=== PATIENT | male | born 1995 | race Caucasian/White ===

== ENCOUNTER 2023-07-19 18:09 | Emergency (ER) | payer OTHER ==
[2023-07-19 18:35] VITALS: BP 131/80; PULSE 77; TEMP 98.2
--- NOTE | 2023-07-19 18:52 | XR ---
EXAMINATION TYPE: XR shoulder complete RT DATE OF EXAM: 07/19/2023 6:36 PM CLINICAL INDICATION:Male, 28 years old with history of Injury; [facility] COMPARISON: None TECHNIQUE: XR shoulder complete RT; shoulder was examined in AP, internally rotated and scapular Y p rojections. FINDINGS: No evidence of acute osseous pathology, joint dislocation, or soft tissue swelling. The remaining por tions of the visualized chest are unremarkable. Calcifications noted in the inferior aspect of the right humeral head could represent joint bodies. IMPRESSION: 1. No acute osseous pathology. 2. Calcifications around the right humeral head could represent joint bodies. Consider further evalu ation with MRI.
--- NOTE | 2023-07-19 19:31 | ED ---
Upper Extremity HPI - General Chief Complaint: Extremity Injury, Upper Stated Complaint: [facility] shoulder injury Time Seen by Provider: 07/19/23 19:07 Source: patient Mode of arrival: ambulatory Limitations: no limitations - History of Present Illness Initial Comments: 28-year-old male presenting with chief complaint of right shoulder injury. Patient was at work lifting a heavy object when he felt a pop in the shoulder. He states that he has an old injury. He has limited range of motion at this time secondary to pain. No numbness or tingling. - Related Data Allergies Allergy/AdvReac Type Severity Reaction Status Date / Time amoxicillin Allergy Rash/Hives Verified 07/09/23 13:59 Penicillins Allergy Rash/Hives Verified 07/19/23 18:29 Review of Systems ROS Statement: Those systems with pertinent positive or pertinent negative responses have been documented in the HPI. ROS Other: All systems not noted in ROS Statement are negative. Past Medical History Past Medical History: No Reported History History of Any Multi-Drug Resistant Organisms: None Reported Past Surgical History: No Surgical Hx Reported Past Psychological History: No Psychological Hx Reported Smoking Status: Current every day smoker, Vaper Past Alcohol Use History: None Reported Past Drug Use History: Marijuana General Exam Limitations: no limitations General appearance: alert, in no apparent distress Head exam: Present: atraumatic, normocephalic, normal inspection Eye exam: Present: normal appearance, EOMI Neck exam: Present: normal inspection, full ROM Respiratory exam: Absent: respiratory distress Right Shoulder Exam: Present: normal inspection, tenderness. Absent: full ROM, swelling, deformity Neurological exam: Present: alert, oriented X3 Psychiatric exam: Present: normal affect, normal mood Skin exam: Present: warm, dry, intact, normal color. Absent: rash Course Vital Signs 07/19/23 07/19/23 18:27 20:15 Temperature 98.2 F Pulse Rate 77 Respiratory 20 16 Rate Blood Pressure 131/80 O2 Sat by Pulse 98 Oximetry Medical Decision Making - Medical Decision Making Was pt. sent in by a medical professional or institution ([facility], PATIENT PORTAL REPRESENTATIVE, urgent care, hospital, or intermediate...) When possible be specific @ -No Did you speak to anyone other than the patient for history (EMS, parent, family, police, friend...)? What history was obtained from this source @ -No Did you review nursing and triage notes (agree or disagree)? Why? @ -I reviewed and agree with nursing and triage notes Were old charts reviewed (outside hosp., previous admission, EMS record, old EKG, old radiological studies, urgent care reports/EKG's, intermediate records)? Report findings @ -No old charts were reviewed Differential Diagnosis (chest pain, altered mental status, abdominal pain women, abdominal pain men, vaginal bleeding, weakness, fever, dyspnea, syncope, headache, dizziness, GI bleed, back pain, seizure, CVA, palpatations, mental health, musculoskeletal)? @ -Differential Musculoskeletal Muscular strain, contusion, ligament sprain, fracture, arthritis, septic arthritis, bursitis, cellulitis, muscle spasm, nerve compression, DVT, arterial occlusion, herpes zoster, electrolyte abnormality, tumor.... This is not meant to be in all inclusive list EKG interpreted by me (3pts min.). @ -As above X-rays interpreted by me (1pt min.). @ -No acute osseous pathology. Calcifications from the right humeral head could represent joint bodies. Consider further evaluation with MRI. CT interpreted by me (1pt min.). @ -None done U/S interpreted by me (1pt. min.). @ -None done What testing was considered but not performed or refused? (CT, X-rays, U/S, labs)? Why? @ -None What meds were considered but not given or refused? Why? @ -None Did you discuss the management of the patient with other professionals (professionals i.e. , PA, PATIENT PORTAL REPRESENTATIVE, lab, RT, psych nurse, 7th grade social studies teacher, christian ministries professor, teacher, corporate trust officer, field nurse case manager)? Give summary @ -No Was smoking cessation discussed for >3mins.? @ -No Was critical care preformed (if so, how long)? @ -No Were there social determinants of health that impacted care today? How? (Homelessness, low income, unemployed, alcoholism, drug addiction, transportation, low edu. Level, literacy, decrease access to med. care, [facility], rehab)? @ -No Was there de-escalation of care discussed even if they declined (Discuss DNR or withdrawal of care, Hospice)? DNR status @ -No What co-morbidities impacted this encounter? (DM, HTN, Smoking, COPD, CAD, Cancer, CVA, ARF, Chemo, Hep., AIDS, mental health diagnosis, sleep apnea, morbid obesity)? @ -None Was patient admitted / discharged? Hospital course, mention meds given and route, prescriptions, significant lab abnormalities, going to OR and other pertinent info. @ -28-year-old male presenting with chief complaint of right shoulder injury from lifting a heavy object at work. Neurovascularly intact. X-ray negative for fracture or dislocation. Possible joint bodies, recommended evaluation with MRI. Patient is educated on today's findings and instructed to follow-up with orthopedics. Provided with a shoulder sling. Follow-up with PCP. Report back to ER with any new or worsening symptoms. Discussed return parameters and answered all questions. Patient conveyed verbal understanding and agreed to the plan. I discussed this case in detail with my attending Dr. Logan Undiagnosed new problem with uncertain prognosis? @ -No Drug Therapy requiring intensive monitoring for toxicity (Heparin, Nitro, Insulin, Cardizem)? @ -No Were any procedures done? @ -No Diagnosis/symptom? @ -Shoulder sprain Acute, or Chronic, or Acute on Chronic? @ -Acute Uncomplicated (without systemic symptoms) or Complicated (systemic symptoms)? @ -Uncomplicated Side effects of treatment? @ -No Exacerbation, Progression, or Severe Exacerbation? @ -No Poses a threat to life or bodily function? How? (Chest pain, [place], [place], pneumonia, PE, COPD, DKA, ARF, appy, cholecystitis, CVA, Diverticulitis, Homicidal, Suicidal, threat to staff... and all critical care pts) @ -No Disposition Clinical Impression: Shoulder sprain Disposition: HOME SELF-CARE Condition: Good Instructions (If sedation given, give patient instructions): Shoulder Sprain (ED) Additional Instructions: Follow-up with PCP. Report back to ER with any new or worsening symptoms. Take Motrin and Tylenol as needed for pain control. Rest and ice the shoulder. Is patient prescribed a controlled substance at d/c from ED?: No Referrals: None,Stated [Primary Care Provider] - 1-2 days Kenan Art MD [Medical Doctor] - 1-2 days Time of Disposition: 19:31
[2023-07-19 20:24] VITALS: RESP 16
== END 2023-07-19 20:15 | disposition home or self-care (01) ==
LOC: EC 18:09
DX: S43.401A Unspecified sprain of right shoulder joint, initial encounter (principal); F17.290 Nicotine dependence, other tobacco product, uncomplicated; F12.90 Cannabis use, unspecified, uncomplicated; Z88.0 Allergy status to penicillin; X50.0XXA Overexertion from strenuous movement or load, initial encounter; Y99.0 Civilian activity done for income or pay
CPT/HCPCS: 99283

== ENCOUNTER 2024-03-27 17:04 | Emergency (ER) | payer OTHER ==
--- NOTE | 2024-03-27 17:39 | ED ---
Fall HPI - General Chief Complaint: Fall Stated Complaint: Fall/L side injury Time Seen by Provider: 03/27/24 17:20 Source: patient, RN notes reviewed Mode of arrival: ambulatory - History of Present Illness Initial Comments: This is a 28-year-old male with no significant past medical history who presents emergency department chief complaint of a fall. Patient states that on 03/25 he was at work machinery when part of the board gave way resulting in a fall injuring the patient's left lower side of the abdomen. Patient denies hitting his head or loss of consciousness at time of the fall. However states that he is having neck pain and mild headache since the event. Patient denies blood in his urine or stool. No other acute bony complaints. - Related Data Allergies Allergy/AdvReac Type Severity Reaction Status Date / Time amoxicillin Allergy Rash/Hives Verified 07/09/23 13:59 Penicillins Allergy Rash/Hives Verified 07/19/23 18:29 Review of Systems ROS Statement: Those systems with pertinent positive or pertinent negative responses have been documented in the HPI. ROS Other: All systems not noted in ROS Statement are negative. Past Medical History Past Medical History: No Reported History History of Any Multi-Drug Resistant Organisms: None Reported Past Surgical History: No Surgical Hx Reported Past Psychological History: No Psychological Hx Reported Smoking Status: Current every day smoker, Vaper Past Alcohol Use History: None Reported Past Drug Use History: Marijuana General Exam Limitations: no limitations General appearance: alert, in no apparent distress Head exam: Present: atraumatic, normocephalic, normal inspection Eye exam: Present: normal appearance, PERRL, EOMI. Absent: scleral icterus, conjunctival injection, periorbital swelling ENT exam: Present: normal exam, mucous membranes moist Neck exam: Present: normal inspection, tenderness, full ROM Respiratory exam: Present: normal lung sounds bilaterally. Absent: respiratory distress, wheezes, rales, rhonchi, stridor Cardiovascular Exam: Present: regular rate, normal rhythm, normal heart sounds. Absent: systolic murmur, diastolic murmur, rubs, gallop, clicks GI/Abdominal exam: Present: soft, tenderness (left lower abdomen with ecchymosis mild abrasion measuring approximately 8 cm x 4 cm). Absent: guarding, rebound, rigid Extremities exam: Present: normal inspection, full ROM, normal capillary refill. Absent: tenderness, pedal edema, joint swelling, calf tenderness Back exam: Present: normal inspection Neurological exam: Present: alert, oriented X3, CN II-XII intact Psychiatric exam: Present: normal affect, normal mood Skin exam: Present: warm, dry, intact, normal color, other. Absent: rash Course Vital Signs 03/27/24 03/27/24 17:19 21:51 Temperature 97 F L 97.2 F L Pulse Rate 75 69 Respiratory 16 18 Rate Blood Pressure 160/87 123/80 O2 Sat by Pulse 98 98 Oximetry Medical Decision Making - Medical Decision Making Was pt. sent in by a medical professional or institution (, PA, OVEN ROASTER, urgent care, hospital, or [facility]...) When possible be specific @ -No Did you speak to anyone other than the patient for history (EMS, parent, family, police, friend...)? What history was obtained from this source @ -No Did you review nursing and triage notes (agree or disagree)? Why? @ -I reviewed and agree with nursing and triage notes Were old charts reviewed (outside hosp., previous admission, EMS record, old EKG, old radiological studies, urgent care reports/EKG's, [facility] records)? Report findings @ -No old charts were reviewed Differential Diagnosis (chest pain, altered mental status, abdominal pain women, abdominal pain men, vaginal bleeding, weakness, fever, dyspnea, syncope, headache, dizziness, GI bleed, back pain, seizure, CVA, palpatations, mental he alth, musculoskeletal)? @ -Ecchymosis, hematoma, cervical neck strain, cervical neck fracture, intr aabdominal hemorrhage, sepsis, all inclusive. EKG interpreted by me (3pts min.). @ -none X-rays interpreted by me (1pt min.). @ -xray of the cervical spine no evidence for fracture or malalignment. CT interpreted by me (1pt min.). @ -CT abdomen pelvis without contrast reveals soft tissue contusion in the left mid abdominal wall laterally with no significant acute abnormality U/S interpreted by me (1pt. min.). @ -None done What testing was considered but not performed or refused? (CT, X-rays, U/S, labs)? Why? @ -None What meds were considered but not given or refused? Why? @ -None Did you discuss the management of the patient with other professionals (professionals i.e. , PA, OVEN ROASTER, lab, RT, psych nurse, social media editor, admiralty lawyer, teacher, donor relations officer, case operator)? Give summary @ -No Was smoking cessation discussed for >3mins.? @ -No Was critical care preformed (if so, how long)? @ -No Were there social determinants of health that impacted care today? How? (Homelessness, low income, unemployed, alcoholism, drug addiction, transportation, low edu. Level, literacy, decrease access to med. care, [facility], rehab)? @ -No Was there de-escalation of care discussed even if they declined (Discuss DNR or withdrawal of care, Hospice)? DNR status @ -No What co-morbidities impacted this encounter? (DM, HTN, Smoking, COPD, CAD, Cancer, CVA, ARF, Chemo, Hep., AIDS, mental health diagnosis, sleep apnea, morbid obesity)? @ -None Was patient admitted / discharged? Hospital course, mention meds given and route, prescriptions, significant lab abnormalities, going to OR and other pertinent info. @ -Discharged. 28-year-old male with a fall. On examination patient noted to have ecchymosis of the left lateral abdominal wall measuring roughly 8 cm x 4 cm with a noted abrasion. Additionally patient has cervical neck pain range of motion. Neurologically intact. At this time labs will be ordered in addition to CT of the abdomen and x-ray of the neck. Patient is provided with pain medication. On reevaluation patient states that pain has somewhat improved but is requesting further medication. Review of imaging no acute process at this time. Patient provided with a heating pack to the emergency department and recommended to continue Tylenol Motrin at home as needed for symptomatic relief. Additionally use of heat will aid in relief of abdominal ecchymosis. Recommend the patient follows up with his primary care provider next week for further evaluation. All questions answered at bedside and strict return parameters discussed with the patient which he is verbalized understanding. Patient provided with a work note. Case discussed with my attending Dr. Mayer Undiagnosed new problem with uncertain prognosis? @ -No Drug Therapy requiring intensive monitoring for toxicity (Heparin, Nitro, Insulin, Cardizem)? @ -No Were any procedures done? @ -No Diagnosis/symptom? @ -Fall, abdominal ecchymosis, cervical neck pain Acute, or Chronic, or Acute on Chronic? @ -Acute Uncomplicated (without systemic symptoms) or Complicated (systemic symptoms)? @ -uncomplicated Side effects of treatment? @ -No Exacerbation, Progression, or Severe Exacerbation? @ -No Poses a threat to life or bodily function? How? (Chest pain, [place], [place], pneumonia, PE, COPD, DKA, ARF, appy, cholecystitis, CVA, Diverticulitis, Homicidal, Suicidal, threat to staff... and all critical care pts) @ -No - Lab Data Result diagrams: 03/27/24 18:08 03/27/24 18:08 Lab Results 03/27/24 03/27/24 Range/Units 18:08 18:08 WBC 9.8 (3.8-10.6) k/uL RBC 5.27 (4.30-5.90) m/uL Hgb 16.5 (13.0-17.5) gm/dL Hct 50.0 (39.0-53.0) % MCV 94.9 (80.0-100.0) fL MCH 31.3 (25.0-35.0) pg MCHC 32.9 (31.0-37.0) g/dL RDW 12.0 (11.5-15.5) % Plt Count 262 (150-450) k/uL MPV 7.2 Neutrophils % 64 % Lymphocytes % 24 % Monocytes % 5 % Eosinophils % 3 % Basophils % 1 % Neutrophils # 6.3 (1.3-7.7) k/uL Lymphocytes # 2.3 (1.0-4.8) k/uL Monocytes # 0.5 (0-1.0) k/uL Eosinophils # 0.2 (0-0.7) k/uL Basophils # 0.1 (0-0.2) k/uL Sodium 137 (137-145) mmol/L Potassium 4.1 (3.5-5.1) mmol/L Chloride 107 (98-107) mmol/L Carbon Dioxide 25 (22-30) mmol/L Anion Gap 5 mmol/L BUN 18 (9-20) mg/dL Creatinine 0.96 (0.66-1.25) mg/dL Est GFR (CKD-EPI)AfAm >90 (>60 ml/min/1.73 sqM) Est GFR (CKD-EPI)NonAf >90 (>60 ml/min/1.73 sqM) Glucose 86 (74-99) mg/dL Calcium 9.6 (8.4-10.2) mg/dL Total Bilirubin 0.8 (0.2-1.3) mg/dL AST 28 (17-59) U/L ALT 25 (4-49) U/L Alkaline Phosphatase 78 (38-126) U/L Total Protein 7.0 (6.3-8.2) g/dL Albumin 4.4 (3.5-5.0) g/dL Disposition Clinical Impression: Fall, Traumatic ecchymosis of abdominal wall, Cervical pain (neck) Disposition: HOME SELF-CARE Condition: Good Instructions (If sedation given, give patient instructions): Fall Prevention (ED) Additional Instructions: Return to the emergency department if your symptoms worsen or not improved. Use heating pack at home addition to Tylenol Motrin as needed for pain relief. Is patient prescribed a controlled substance at d/c from ED?: No Referrals: None,Stated [Primary Care Provider] - 1-2 days Time of Disposition: 21:18
[2024-03-27] MEDS: HYDROmorphone 0.5 MG/0.5 ML SYRINGE IVP STA ×2 (18:02→20:13)
[2024-03-27 18:20] LABS: Basophils # (A) 0.1 k/uL (0-0.2); Basophils % (A) 1 %; Eosinophils # (A) 0.2 k/uL (0-0.7); Eosinophils % (A) 3 %; HGB 16.5 gm/dL (13.0-17.5); Lymphocytes # (A) 2.3 k/uL (1.0-4.8); Lymphocytes % (A) 24 %; MCH 31.3 pg (25.0-35.0); MCHC 32.9 g/dL (31.0-37.0); MCV 94.9 fL (80.0-100.0); Mean Platelet Volume 7.2; Monocytes # (A) 0.5 k/uL (0-1.0); Monocytes % (A) 5 %; Neutrophils # (A) 6.3 k/uL (1.3-7.7); Neutrophils % (A) 64 %; Platelet Count 262 k/uL (150-450); RBC 5.27 m/uL (4.30-5.90); WBC 9.8 k/uL (3.8-10.6)
[2024-03-27 18:36] LABS: ALT 25 U/L (4-49); AST 28 U/L (17-59); African American GFR (CKD) >90 (>60 ml/min/1.73 sqM); Albumin 4.4 g/dL (3.5-5.0); Alkaline Phosphatase 78 U/L (38-126); Anion Gap 5 mmol/L; Blood Urea Nitrogen 18 mg/dL (9-20); Calcium 9.6 mg/dL (8.4-10.2); Carbon Dioxide 25 mmol/L (22-30); Chloride 107 mmol/L (98-107); Glucose 86 mg/dL (74-99); Non-African American GFR(CKD) >90 (>60 ml/min/1.73 sqM); Potassium 4.1 mmol/L (3.5-5.1); Sodium 137 mmol/L (137-145); Total Bilirubin 0.8 mg/dL (0.2-1.3)
--- NOTE | 2024-03-27 21:00 | CT ---
EXAMINATION TYPE: CT abdomen wo con CT DLP: 355.8 mGycm, Automated exposure control for dose reduction was used. DATE OF EXAM: 03/27/2024 6:23 PM COMPARISON: None. CLINICAL INDICATION:Male, 28 years old with history of fall, pain left mid abdomen with ecchymosis; f all, pain left mid abdomen with ecchymosis TECHNIQUE: CT of the abdomen was performed without contrast. Multiplanar reformats generated. Contrast used: mL of , (none if empty) Oral contrast used: without Oral Contrast (none if empty) FINDINGS: Please note the exam does not include the pelvis, as this was ordered as an abdomen-only study. LOWER CHEST: Unremarkable ABDOMEN LIVER: Unremarkable GALLBLADDER AND BILE DUCTS: Unremarkable gallbladder. No biliary ductal dilatation. PANCREAS: Unremarkable. SPLEEN: Unremarkable. ADRENAL GLANDS: Unremarkable. KIDNEYS AND URETERS: Punctate calculus lower pole right kidney. No evidence of contour deformity, per inephric stranding or fluid. No hydronephrosis. PERITONEUM/RETROPERITONEUM: No evidence of pneumoperitoneum or free fluid. No retroperitoneal hemat marshal. STOMACH AND BOWEL: Stomach and small bowel appear mildly distended with heterogeneous contents and fl uid/fluid level in the duodenum, likely reflecting ingested foodstuffs. No evidence of a small bowel hematoma or obstruction. Presumptive appendix in the right lower quadrant appears gas filled and othe rwise unremarkable. [id number] stool throughout the visualized colon without discrete abnormali ty. VASCULATURE: Aorta and major branches are grossly unremarkable. No AAA. LYMPH NODES: No enlarged nodes by CT size criteria. SOFT TISSUE/ABDOMINAL WALL: There is patchy subcutaneous haziness and fat stranding in the left mid a bdominal wall laterally, consistent with contusion. No significant hematoma is seen. No radiopaque fo reign body. MUSCULOSKELETAL: No acute osseous abnormalities. IMPRESSION: 1. Soft tissue contusion in the left mid abdominal wall laterally. 2. No significant acute abnormality otherwise in the abdomen.
--- NOTE | 2024-03-27 21:09 | XR ---
EXAMINATION TYPE: XR cervical spine comp DATE OF EXAM: 03/27/2024 6:29 PM CLINICAL INDICATION:Male, 28 years old with history of fall, pain left mid abdomen with ecchymosis; P [facility] COMPARISON: TECHNIQUE: The cervical spine was imaged in frontal, lateral, odontoid and bilateral oblique. FINDINGS: Normal mineralization. Osseous structures show no evidence of acute fracture or traumatic malalignmen t. Craniocervical junction appears intact. There is reversal of the normal cervical lordosis from C2 to C6, thereafter slightly exaggerated kyphosis in the upper thoracic region. On the frontal view the re is mild apex right curvature centered in the mid cervical spine. Oblique images show patent osseous neural foramina bilaterally throughout. No acute soft tissue abnormality is shown. No prevertebral soft tissue thickening. Normal epiglottis. If there is persistent clinical concern, CT and/or MRI may be considered. IMPRESSION: 1. No radiographic evidence of cervical spine fracture or traumatic malalignment. 2. Other alignment aberrations as described above. Mild reversal of the normal cervical lordosis, can be seen with degenerative changes, pain, positioning, muscular spasm.
[2024-03-27 21:53] VITALS: BP 123/80; PULSE 69; RESP 18; TEMP 97.2
== END 2024-03-27 21:52 | disposition home or self-care (01) ==
LOC: EC 17:04
DX: S30.1XXA Contusion of abdominal wall, initial encounter (principal); M54.6 Pain in thoracic spine; F17.290 Nicotine dependence, other tobacco product, uncomplicated; Z88.0 Allergy status to penicillin; W18.30XA Fall on same level, unspecified, initial encounter
CPT/HCPCS: 36415; 80053; 85025; 72050; 74150; 99284; 96374; 96376; J1170; 96375

== ENCOUNTER 2024-03-30 16:11 | Emergency (ER) | payer OTHER ==
[2024-03-30 16:37] VITALS: RESP 18
--- NOTE | 2024-03-30 16:38 | ED ---
Fall HPI - General Chief Complaint: Fall Stated Complaint: [facility] L Side Fall Injury Time Seen by Provider: 03/30/24 16:28 Source: patient, RN notes reviewed Mode of arrival: wheelchair - History of Present Illness Initial Comments: This is a 28-year-old male no significant past medical history presents emergency department chief complaint of a injury at work. Patient was evaluated in the emergency department on 03/27/24 to this fall. He states that he has been experiencing pain of his left knee and mid back since the time of the fall that he was not evaluated for while he was seen in the emergency department. Patient states that he has been using Tylenol Motrin at home in addition to heat and ice packs which does aid in relief. He is denying shortness of breath, difficulty breathing, loss of bladder or bowel continence, saddle anesthesias. - Related Data Allergies Allergy/AdvReac Type Severity Reaction Status Date / Time amoxicillin Allergy Rash/Hives Verified 03/30/24 16:37 Penicillins Allergy Rash/Hives Verified 03/30/24 16:37 Review of Systems ROS Statement: Those systems with pertinent positive or pertinent negative responses have been documented in the HPI. ROS Other: All systems not noted in ROS Statement are negative. Past Medical History Past Medical History: No Reported History History of Any Multi-Drug Resistant Organisms: None Reported Past Surgical History: No Surgical Hx Reported Past Psychological History: No Psychological Hx Reported Smoking Status: Current every day smoker, Vaper Past Alcohol Use History: None Reported Past Drug Use History: Marijuana General Exam General appearance: alert, in no apparent distress Head exam: Present: atraumatic, normocephalic, normal inspection Eye exam: Present: normal appearance, PERRL, EOMI. Absent: scleral icterus, conjunctival injection, periorbital swelling ENT exam: Present: normal exam, mucous membranes moist Neck exam: Present: normal inspection. Absent: tenderness, meningismus, lymphadenopathy Respiratory exam: Present: normal lung sounds bilaterally. Absent: respiratory distress, wheezes, rales, rhonchi, stridor Cardiovascular Exam: Present: regular rate, normal rhythm, normal heart sounds. Absent: systolic murmur, diastolic murmur, rubs, gallop, clicks GI/Abdominal exam: Present: soft, normal bowel sounds, other (ecchymosis with noted abrasion, yellow green color measuring about 8 cm by 6cm). Absent: distended, tenderness, guarding, rebound, rigid Left Knee exam: Present: normal inspection, full ROM, tenderness (with ROM). Absent: swelling, abrasion, laceration, ecchymosis, deformity Back exam: Present: normal inspection, full ROM, tenderness (thoracic spine). Absent: CVA tenderness (R), CVA tenderness (L), muscle spasm Neurological exam: Present: alert, oriented X3, CN II-XII intact Psychiatric exam: Present: normal affect, normal mood Skin exam: Present: warm, dry, intact, normal color. Absent: rash Course Vital Signs 03/30/24 16:32 Temperature 98.2 F Pulse Rate 82 Respiratory 18 Rate Blood Pressure 129/82 O2 Sat by Pulse 97 Oximetry Medical Decision Making - Medical Decision Making Was pt. sent in by a medical professional or institution (, PA, ORGAN RECOVERY COORDINATOR, urgent care, hospital, or senior living...) When possible be specific @ -No Did you speak to anyone other than the patient for history (EMS, parent, family, police, friend...)? What history was obtained from this source @ -No Did you review nursing and triage notes (agree or disagree)? Why? @ -I reviewed and agree with nursing and triage notes Were old charts reviewed (outside hosp., previous admission, EMS record, old EK G, old radiological studies, urgent care reports/EKG's, senior living records)? Report findings @ -Reviewed the patient's chart note from 03/27/2024 where a x-ray of the cervical spine and CT of the abdomen ordered which revealed no acute pathology for either. Differential Diagnosis (chest pain, altered mental status, abdominal pain women, abdominal pain men, vaginal bleeding, weakness, fever, dyspnea, syncope, headache, dizziness, GI bleed, back pain, seizure, CVA, palpatations, mental health, musculoskeletal)? @ -Differential Musculoskeletal Muscular strain, contusion, ligament sprain, fracture, arthritis, septic arthritis, bursitis, cellulitis, muscle spasm, nerve compression, DVT, arterial occlusion, herpes zoster, electrolyte abnormality, tumor.... This is not meant to be in all inclusive list EKG interpreted by me (3pts min.). @ -None X-rays interpreted by me (1pt min.). @ -Try of the left knee and thoracic spine no evidence for bony abnormalities, fracture or dislocation. CT interpreted by me (1pt min.). @ -None done U/S interpreted by me (1pt. min.). @ -None done What testing was considered but not performed or refused? (CT, X-rays, U/S, labs)? Why? @ -None What meds were considered but not given or refused? Why? @ -None Did you discuss the management of the patient with other professionals (professionals i.e. , PA, ORGAN RECOVERY COORDINATOR, lab, RT, psych nurse, social work lecturer, cargo station worker, te acher, chief human resources officer, case monitor)? Give summary @ -No Was smoking cessation discussed for >3mins.? @ -No Was critical care preformed (if so, how long)? @ -No Were there social determinants of health that impacted care today? How? (Homelessness, low income, unemployed, alcoholism, drug addiction, transportation, low edu. Level, literacy, decrease access to med. care, senior living, rehab)? @ -No Was there de-escalation of care discussed even if they declined (Discuss DNR or withdrawal of care, Hospice)? DNR status @ -No What co-morbidities impacted this encounter? (DM, HTN, Smoking, COPD, CAD, Cancer, CVA, ARF, Chemo, Hep., AIDS, mental health diagnosis, sleep apnea, morbid obesity)? @ -None Was patient admitted / discharged? Hospital course, mention meds given and route, prescriptions, significant lab abnormalities, going to OR and other pertinent info. @ -28-year-old male with chief complaint of a fall. On examination patient noted to have left lateral abdominal ecchymosis with noted abrasion. Patient has pain in the left knee with range of motion, range of motion is intact however. Additionally patient is complaining of thoracic back pain with range of motion, neurovascularly intact no signs of abrasion or crepitus. Patient will be provided with oral Tylenol and sent for x-rays of the knee and thoracic back. Additionally, patient is complaining of lumbar back pain. Discussion with patient at bedside that CT of the abdomen and pelvis completed on 03/27 was able to visualize the thoracic spine with no acute abnormalities. X-ray nonconcerning. Recommend the patient continue Tylenol Motrin at home for symptomatic relief. Work injury report signed. Recommend that patient establishes care with a primary care provider for further evaluation outpatient. All questions answered at bedside and strict return parameters have been discussed with the patient which she has verbalized understanding. Case discussed with my attending Dr. Luevano Undiagnosed new problem with uncertain prognosis? @ -No Drug Therapy requiring intensive monitoring for toxicity (Heparin, Nitro, Insulin, Cardizem)? @ -No Were any procedures done? @ -No Diagnosis/symptom? @ -Fall, back pain, knee pain, abdominal ecchymosis Acute, or Chronic, or Acute on Chronic? @ -Acute Uncomplicated (without systemic symptoms) or Complicated (systemic symptoms)? @ -uncomplicated Side effects of treatment? @ -No Exacerbation, Progression, or Severe Exacerbation? @ -No Poses a threat to life or bodily function? How? (Chest pain, [place], [place], pneumonia, PE, COPD, DKA, ARF, appy, cholecystitis, CVA, Diverticulitis, Homicidal, Suicidal, threat to staff... and all critical care pts) @ -No Disposition Clinical Impression: Fall, Left knee pain, Back pain Disposition: HOME SELF-CARE Condition: Good Instructions (If sedation given, give patient instructions): Back Pain (ED) Additional Instructions: Return to the emergency department if your symptoms worsen or not improve. Recommend establishment with primary care provider for further evaluation. Use Tylenol and Motrin at home for symptomatic relief. Is patient prescribed a controlled substance at d/c from ED?: No Referrals: None,Stated [Primary Care Provider] - 1-2 days Time of Disposition: 17:39
[2024-03-30] MEDS: ACETAMINOPHEN TAB 500 MG TAB PO STA (17:22)
--- NOTE | 2024-03-30 17:29 | XR ---
EXAMINATION TYPE: XR knee complete LT DATE OF EXAM: 03/30/2024 5:01 PM CLINICAL INDICATION:Male, 28 years old with history of fall, injury, pain; [facility] COMPARISON: None. TECHNIQUE: XR knee complete LT; examined in Frontal, lateral and oblique projections. FINDINGS: No evidence of any acute osseous pathology, soft tissue swelling, or joint effusion is no rosa. IMPRESSION: 1. No acute osseous pathology.
--- NOTE | 2024-03-30 17:30 | XR ---
EXAMINATION TYPE: XR thoracic spine 2V DATE OF EXAM: 03/30/2024 5:01 PM CLINICAL INDICATION:Male, 28 years old with history of fall, injury, pain; [facility] COMPARISON: None TECHNIQUE: XR thoracic spine 2V views of the spine in Frontal and lateral projections. FINDINGS: No evidence of acute fracture. There is no evidence of disk space narrowing or loss of vertebral bod y height. There is normal alignment of the thoracic vertebral bodies. IMPRESSION: No acute osseous pathology.
[2024-03-30 17:55] VITALS: BP 124/86; PULSE 78; TEMP 98.1
== END 2024-03-30 17:55 | disposition home or self-care (01) ==
LOC: EC 16:11
DX: S30.1XXA Contusion of abdominal wall, initial encounter (principal); M25.562 Pain in left knee; M54.6 Pain in thoracic spine; M54.50 Low back pain, unspecified; F17.290 Nicotine dependence, other tobacco product, uncomplicated; Z88.0 Allergy status to penicillin; W19.XXXA Unspecified fall, initial encounter; Y99.0 Civilian activity done for income or pay
CPT/HCPCS: 72070; 99284